=== PATIENT | male | born 2000 | race African-American/Black ===

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

== ENCOUNTER 2020-02-03 21:14 | Emergency (ER) | payer MEDICAID ==
[~2020-02-03] VITALS: Ht 172.7 cm; Wt 65.0 kg
[~2020-02-03 21:14] MED LIST changes: +BISA-49 PO; +OMEP10CA5 PO; -TRAZ-137 PO; +TRAZ-175 PO
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
[2020-02-03] MEDS ORDERED: ACETAMINOPHEN 500 MG TABLET PO ONE (22:00)
--- NOTE | 2020-02-03 22:33 | NUR ---
Pt to ct
[2020-02-03] MEDS ORDERED: ACETAMINOPHEN 500 MG TABLET ONE (22:49)
--- NOTE | 2020-02-03 22:52 | NUR ---
Pt medicated per emar for pain.
[2020-02-03] MEDS ORDERED: ONDANSETRON ODT 8 MG ONE (23:41)
--- NOTE | 2020-02-03 23:49 | NUR ---
[employer] interveiwing patient at this time.
[2020-02-04] MEDS ORDERED: ONDANSETRON ODT 8 MG PO ONE
--- NOTE | 2020-02-04 00:03 | NUR ---
Report to Giovany KIRKPATRICK
--- NOTE | 2020-02-04 00:05 | NUR ---
REPORT RECEIVED AND CARE ASSUMED. [employer] AT BEDSIDE TAKING REPORT. NO S/S OF ACUTE DISTRESS.
--- NOTE | 2020-02-04 00:26 | NUR ---
[employer] REMAINS AT BEDSIDE. PT TO BE D/C HOME AFTER [employer] REPORT COMPLETE.
[2020-02-04 00:39] VITALS: BP 104/72
== END 2020-02-04 00:42 | disposition home or self-care (01) ==
LOC: ED 21:44
DX: S09.90XA Unspecified injury of head, initial encounter (principal); Y00.XXXA Assault by blunt object, initial encounter; Y93.89 Activity, other specified; Y92.410 Unspecified street and highway as the place of occurrence of the external cause; Y99.8 Other external cause status
CPT/HCPCS: 70450; 99284; Q0162

== ENCOUNTER 2020-02-05 05:34 | Emergency (ER) | payer MEDICAID ==
[~2020-02-05] VITALS: Ht 172.7 cm; Wt 69.2 kg
[2020-02-05 05:38] VITALS: BP 104/35
== END 2020-02-05 06:25 | disposition home or self-care (01) ==
LOC: ED 06:16
DX: S06.0X9A Concussion with loss of consciousness of unspecified duration, initial encounter (principal); M79.18 Myalgia, other site; R10.9 Unspecified abdominal pain; R42 Dizziness and giddiness; Y04.8XXA Assault by other bodily force, initial encounter; Y93.89 Activity, other specified; Y92.488 Other paved roadways as the place of occurrence of the external cause; Y99.8 Other external cause status
CPT/HCPCS: 99283

== ENCOUNTER 2020-02-09 22:04 | Emergency (ER) | payer MEDICAID ==
[~2020-02-09] VITALS: Ht 172.7 cm; Wt 62.3 kg
[2020-02-09] MEDS ORDERED: DICYCLOMINE 20 MG TABLET ONE (22:58)
[2020-02-09] MEDS ORDERED: FAMOTIDINE 20 MG TABLET ONE (22:58)
[2020-02-09] MEDS ORDERED: ONDANSETRON 2MG/ML, 2ML ONE ×2 (22:59→23:16)
[2020-02-09] MEDS ORDERED: ONDANSETRON 2MG/ML, 2ML IVPush ONE (23:00)
[2020-02-09] MEDS ORDERED: DICYCLOMINE 10 MG/ML, 2ML IM ONE (23:00)
[2020-02-09] MEDS ORDERED: SODIUM CHLORIDE 0.9% 1,000ML IVBOLUS ONE (23:00)
[2020-02-09] MEDS ORDERED: SODIUM CHLORIDE FLUSH 10ML SYR IVF ONE (23:00)
[2020-02-09] MEDS ORDERED: FAMOTIDINE 20 MG/2 ML IVPush ONE (23:00)
[2020-02-09 23:16] LABS: BASOPHILS # (AUTO) 0.05 x10^3/uL (0-0.3); BASOPHILS % (AUTO) 1 % (0-1); EOSINOPHILS # (AUTO) 0.31 x10^3/uL (0-0.8); EOSINOPHILS % (AUTO) 3 % (1-7); LYMPHOCYTES # (AUTO) 2.47 x10^3/uL (1-6.1); LYMPHOCYTES % (AUTO) 20 % (22-44); MD NO; MEAN CORPUSCULAR HEMOGLOBIN 24.2 pg (27.5-34.5); MEAN CORPUSCULAR HGB CONC 31.7 g/dL (33.2-36.2); MEAN CORPUSCULAR VOLUME 76.3 fL (81-97); MEAN PLATELET VOLUME 10.1 fL (7.4-10.4); MONOCYTES # (AUTO) 0.89 x10^3/uL (0-1.4); MONOCYTES % (AUTO) 7 % (2-9); NEUTROPHILS # (AUTO) 8.39 x10^3/uL (1.8-8.0); NEUTROPHILS % (AUTO) 69 % (42-75); PLATELET COUNT 247 x10^3/uL (130-400); RED BLOOD COUNT 5.58 x10^6/uL (4.38-5.82); RED CELL DISTRIBUTION WIDTH 15.1 % (9.4-14.8)
[2020-02-09] MEDS ORDERED: FAMOTIDINE 20 MG/2 ML ONE (23:16)
[2020-02-09] MEDS ORDERED: DICYCLOMINE 10 MG/ML, 2ML ONE (23:17)
[2020-02-09 23:23] LABS: ALANINE AMINOTRANSFERASE 18 U/L (12-78); ANION GAP 5 mmol/L (5-15); CALCIUM 8.8 mg/dL (8.5-10.1); CHLORIDE 110 mmol/L (98-107)
[2020-02-09 23:26] LABS: ALKALINE PHOSPHATASE 79 U/L (45-117); BILIRUBIN,TOTAL 1.1 mg/dL (0.2-1.0); TOTAL PROTEIN 7.2 g/dL (6.4-8.2)
--- NOTE | 2020-02-09 23:49 | NUR ---
THIS PT CAME FROM HOME, FOR ABD PAIN AND NAUSEA. PT HAS A HX OF "STOMACH ULCER I THINK." PT VOMITTED DIGESTED FOOD ONCE HERE AND THEN STATED RELIEF FROM NAUSEA EVEN BEFORE MEDICATION. PT HAS BEEN TALKING ON PHONE, NO SIGNS OF DISTRESS. VSS, PT ON BP AND O2 MONITORS. SIDE RAILS UP, CALL LIGHT AND BELONGINGS IN REACH.
[2020-02-10 00:32] VITALS: BP 101/44
== END 2020-02-10 00:35 | disposition home or self-care (01) ==
LOC: ED 22:34
DX: A08.4 Viral intestinal infection, unspecified (principal); R11.2 Nausea with vomiting, unspecified
CPT/HCPCS: 36415; 74021; 80053; 83690; 85025; 96361; 96372; 96374; 96375; 99284; J0500; J2405; J3490; J7030

== ENCOUNTER 2020-04-10 00:28 | Emergency (ER) | payer MEDICAID ==
[~2020-04-10] VITALS: Ht 172.7 cm; Wt 63.4 kg
[2020-04-10 00:30] VITALS: BP 112/59
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
== END 2020-04-10 00:44 ==
LOC: ED 00:38
DX: R10.31 Right lower quadrant pain (principal); R10.32 Left lower quadrant pain; R11.0 Nausea; Z53.21 Procedure and treatment not carried out due to patient leaving prior to being seen by health care provider

== ENCOUNTER 2020-04-13 04:10 | Emergency (ER) | payer MEDICAID ==
[~2020-04-13] VITALS: Ht 172.7 cm; Wt 64.0 kg
--- NOTE | 2020-04-13 04:35 | NUR ---
Alert, answering questions appropriately. C/o gradual onset RLQ pain, states pain was vague yesterday afternoon. Around ~0300 today, pain became sharp and became more localized to RLQ. States 1 episode of emesis ~30 min prior to arrival to ED. Also c/o intermittent lightheadedness x2 hours. Denies nausea at this time. RLQ tender to palpation, denies rebound tenderness. Denies diarrhea. Denies fever/chills. Denies chest pain/SOB. Ambulates independently, steady gait
--- NOTE | 2020-04-13 04:41 | NUR ---
PA at bedside
[2020-04-13] MEDS ORDERED: ONDANSETRON 2MG/ML, 2ML ONE (05:16)
[2020-04-13] MEDS ORDERED: ONDANSETRON 2MG/ML, 2ML IVPush ONE (05:30)
[2020-04-13] MEDS ORDERED: SODIUM CHLORIDE 0.9% 1,000ML IVBOLUS ONE (05:30)
[2020-04-13 05:46] LABS: BASOPHILS # (AUTO) 0.09 x10^3/uL (0-0.3); BASOPHILS % (AUTO) 1 % (0-1); EOSINOPHILS # (AUTO) 0.42 x10^3/uL (0-0.8); EOSINOPHILS % (AUTO) 3 % (1-7); LYMPHOCYTES # (AUTO) 3.22 x10^3/uL (1-6.1); LYMPHOCYTES % (AUTO) 24 % (22-44); MD NO; MEAN CORPUSCULAR HEMOGLOBIN 24.3 pg (27.5-34.5); MEAN CORPUSCULAR HGB CONC 31.6 g/dL (33.2-36.2); MEAN CORPUSCULAR VOLUME 76.8 fL (81-97); MEAN PLATELET VOLUME 11.4 fL (7.4-10.4); MONOCYTES # (AUTO) 1.11 x10^3/uL (0-1.4); MONOCYTES % (AUTO) 8 % (2-9); NEUTROPHILS # (AUTO) 8.34 x10^3/uL (1.8-8.0); NEUTROPHILS % (AUTO) 63 % (42-75); PLATELET COUNT 211 x10^3/uL (130-400); RED BLOOD COUNT 5.94 x10^6/uL (4.38-5.82); RED CELL DISTRIBUTION WIDTH 15.8 % (9.4-14.8)
[2020-04-13] MEDS ORDERED: OMNIPAQUE 350 MG/ML, 100ML BOTTLE ONE (06:00)
--- NOTE | 2020-04-13 06:25 | NUR ---
Ambulated to bathroom independently, steady gait
[2020-04-13 06:32] LABS: ALANINE AMINOTRANSFERASE 20 U/L (12-78); ALBUMIN 3.9 g/dL (3.4-5.0); ANION GAP 8 mmol/L (5-15); CALCIUM 9.1 mg/dL (8.5-10.1); CHLORIDE 111 mmol/L (98-107)
[2020-04-13 06:35] LABS: ALKALINE PHOSPHATASE 92 U/L (45-117); CREATININE 0.98 mg/dL (0.7-1.3)
--- NOTE | 2020-04-13 06:53 | NUR ---
Report given to day shift RN
[2020-04-13 06:55] LABS: MICROSCOPIC NOT IND
--- NOTE | 2020-04-13 06:56 | NUR ---
REPORT RECEIVED FROM ANDREA KIRKPATRICK.
[2020-04-13 07:01] VITALS: BP 113/60
--- NOTE | 2020-04-13 07:31 | NUR ---
Patient given discharge instructions and they have confirmed that they understand the instructions. Patient ambulatory with steady gait.
== END 2020-04-13 07:32 | disposition home or self-care (01) ==
LOC: ED 05:29
DX: R10.31 Right lower quadrant pain (principal); R10.33 Periumbilical pain; R11.2 Nausea with vomiting, unspecified
CPT/HCPCS: 36415; 74177; 80053; 81003; 85025; 96361; 96374; 99285; J2405; J7030; Q9967

== ENCOUNTER 2020-07-14 14:37 | Emergency (ER) | payer MEDICAID ==
[~2020-07-14] VITALS: Ht 172.7 cm; Wt 68.0 kg
[2020-07-14 15:07] VITALS: BP 121/61
[2020-07-14 15:32] LABS: BASOPHILS % (AUTO) 0 % (0-1); EOSINOPHILS % (AUTO) 4 % (1-7); LYMPHOCYTES % (AUTO) 22 % (22-44); MEAN CORPUSCULAR HEMOGLOBIN 24.5 pg (27.5-34.5); MEAN CORPUSCULAR HGB CONC 32.5 g/dL (33.2-36.2); MEAN PLATELET VOLUME 9.2 fL (7.4-10.4); MONOCYTES % (AUTO) 7 % (2-9); NEUTROPHILS % (AUTO) 66 % (42-75); PLATELET COUNT 225 x10^3/uL (130-400); RED BLOOD COUNT 5.67 x10^6/uL (4.38-5.82); RED CELL DISTRIBUTION WIDTH 14.9 % (9.4-14.8)
[2020-07-14 15:33] LABS: MD NO
[2020-07-14 15:39] LABS: ALANINE AMINOTRANSFERASE 12 U/L (12-78); ALBUMIN 3.9 g/dL (3.4-5.0); ANION GAP 4 mmol/L (5-15); CALCIUM 8.8 mg/dL (8.5-10.1); CHLORIDE 109 mmol/L (98-107)
[2020-07-14 15:42] LABS: ALKALINE PHOSPHATASE 93 U/L (45-117); CREATININE 1.06 mg/dL (0.7-1.3); TOTAL PROTEIN 7.3 g/dL (6.4-8.2)
== END 2020-07-14 15:55 | disposition left against medical advice (07) ==
LOC: ED 15:49
DX: R10.30 Lower abdominal pain, unspecified (principal)
CPT/HCPCS: 36415; 80053; 85025; 99283

== ENCOUNTER 2020-10-28 09:08 | Emergency (ER) | payer MEDICAID ==
[~2020-10-28] VITALS: Ht 172.7 cm; Wt 67.3 kg
[2020-10-28] MEDS ORDERED: SODIUM CHLORIDE FLUSH 10ML SYR IVF ONE (09:30)
--- NOTE | 2020-10-28 09:40 | NUR ---
PT PROVIDED URINE CUP TO PROVIDE URINE SAMPLE. PT STATES HE IS UNABLE TO PROVIDE SAMPLE AT THIS TIME. CALL LIGHT AND PERSONAL BELONGINGS WITHIN REACH. WILL CONTINUE TO MONITOR.
[2020-10-28 10:03] LABS: BASOPHILS % (AUTO) 0 % (0-1); EOSINOPHILS % (AUTO) 2 % (1-7); LYMPHOCYTES % (AUTO) 20 % (22-44); MEAN CORPUSCULAR HEMOGLOBIN 24.8 pg (27.5-34.5); MEAN CORPUSCULAR HGB CONC 32.5 g/dL (33.2-36.2); MEAN PLATELET VOLUME 9.6 fL (7.4-10.4); MONOCYTES % (AUTO) 8 % (2-9); NEUTROPHILS % (AUTO) 70 % (42-75); PLATELET COUNT 212 x10^3/uL (130-400); RED BLOOD COUNT 5.88 x10^6/uL (4.38-5.82)
[2020-10-28 10:08] LABS: MD NO
[2020-10-28 10:12] LABS: ALBUMIN 4.1 g/dL (3.4-5.0); ANION GAP 7 mmol/L (5-15); CALCIUM 9.1 mg/dL (8.5-10.1); CHLORIDE 104 mmol/L (98-107)
[2020-10-28 10:16] LABS: ALANINE AMINOTRANSFERASE 18 U/L (12-78); ALKALINE PHOSPHATASE 87 U/L (45-117); BILIRUBIN,TOTAL 0.7 mg/dL (0.2-1.0); CREATININE 1.15 mg/dL (0.7-1.3); TOTAL PROTEIN 7.3 g/dL (6.4-8.2)
--- NOTE | 2020-10-28 10:35 | NUR ---
PT TO IMAGING
--- NOTE | 2020-10-28 10:35 | NUR ---
PT TO IMAGING
[2020-10-28 11:37] LABS: MICROSCOPIC NOT IND
--- NOTE | 2020-10-28 12:21 | NUR ---
Patient given discharge instructions and they have confirmed that they understand the instructions. Patient ambulatory with steady gait.
[2020-10-28 12:22] VITALS: BP 133/65
== END 2020-10-28 12:23 | disposition home or self-care (01) ==
LOC: ED 10:33
DX: R10.31 Right lower quadrant pain (principal); R11.2 Nausea with vomiting, unspecified; R10.9 Unspecified abdominal pain
CPT/HCPCS: 36415; 74021; 80053; 81003; 85025; 99284

== ENCOUNTER 2020-12-22 09:59 | Emergency (ER) | payer MEDICAID ==
[~2020-12-22] VITALS: Ht 172.7 cm; Wt 69.7 kg
[2020-12-22] MEDS ORDERED: SODIUM CHLORIDE FLUSH 10ML SYR IVF ONE (11:00)
[2020-12-22 11:21] LABS: BASOPHILS % (AUTO) 0 % (0-1); EOSINOPHILS % (AUTO) 4 % (1-7); LYMPHOCYTES % (AUTO) 26 % (22-44); MEAN CORPUSCULAR HEMOGLOBIN 24.6 pg (27.5-34.5); MEAN CORPUSCULAR HGB CONC 32.8 g/dL (33.2-36.2); MEAN PLATELET VOLUME 9.1 fL (7.4-10.4); MONOCYTES % (AUTO) 9 % (2-9); NEUTROPHILS % (AUTO) 61 % (42-75); PLATELET COUNT 201 x10^3/uL (130-400); RED BLOOD COUNT 5.85 x10^6/uL (4.38-5.82); RED CELL DISTRIBUTION WIDTH 14.7 % (9.4-14.8)
[2020-12-22 11:22] LABS: MD NO
[2020-12-22 11:30] LABS: ALBUMIN 3.9 g/dL (3.4-5.0); ANION GAP 4 mmol/L (5-15); CALCIUM 8.8 mg/dL (8.5-10.1); CHLORIDE 107 mmol/L (98-107); CREATININE 0.85 mg/dL (0.7-1.3)
--- NOTE | 2020-12-22 11:30 | NUR ---
Pt reports chronic stomach problems, including stomach ulcers. States he had been taking a medication for this but ran out. Pt states abnormal stool patterns including intermittent BM that he describes as "stringy" and sometimes black. Pt denies abd pain, N/V.
--- NOTE | 2020-12-22 11:37 | NUR ---
Pt to imaging.
[2020-12-22] MEDS ORDERED: OMNIPAQUE 350 MG/ML, 100ML BOTTLE ONE (11:51)
[2020-12-22 12:39] VITALS: BP 119/77
== END 2020-12-22 12:41 | disposition home or self-care (01) ==
LOC: ED 10:49
DX: K64.8 Other hemorrhoids (principal); R10.2 Pelvic and perineal pain
CPT/HCPCS: 36415; 74177; 80048; 82040; 85025; 99285; Q9967

== ENCOUNTER 2021-03-13 11:24 | Emergency (ER) | payer MEDICAID ==
[~2021-03-13] VITALS: Ht 172.7 cm; Wt 72.0 kg
[2021-03-13 11:32] VITALS: BP 103/58
[2021-03-13] MEDS ORDERED: DICYCLOMINE 10 MG/ML, 2ML ONE (12:14)
[2021-03-13] MEDS ORDERED: DICYCLOMINE 10 MG/ML, 2ML IM ONE (12:30)
--- NOTE | 2021-03-13 13:00 | NUR ---
PT LEFT BEFORE RECIEVING DC PAPERWORK. " I NEED TO GO BACK TO WORK"
== END 2021-03-13 13:02 | disposition home or self-care (01) ==
LOC: ED 12:16
DX: R10.2 Pelvic and perineal pain (principal); L02.31 Cutaneous abscess of buttock
CPT/HCPCS: 96372; 99283; J0500